=== PATIENT | male | born 1960 | race Caucasian/White ===

== ENCOUNTER → 2017-01-24 | Outpatient (CLI) | payer BC, OTHER ==
[2015-09-26 19:15] VITALS: BP 154/79
[~2017-01-24] MED LIST: ACET325T9 PO; ALPR0.5T6 PO; ASCO500C PO; ASPI-482 PO; ASPI325T11 PO; ATOR10TA PO; CLOP75TA27 PO; DOCU-27 PO; FAMO-63 PO; FAMO40TA57 PO; GABA-586 PO; HYDR-2666 PO; LEVO1CAP3 PO; METF500T4 PO; METO25TA2 PO; OMEG500C PO; POLY17PO29 PO; UBID100C26 PO; UBID10CA5 PO; VITA1TAB49 PO; VITA200C PO; VITA80003 PO; WARF2TAB7 PO
--- NOTE | 2017-01-24 19:17 | CARD ---
APPROVED REPORT EXAM: Two-dimensional and M-mode echocardiogram with Doppler and color Doppler. Other Information Quality : GoodHR: 61bpm Rhythm : NSR INDICATION Cardiac Disease: CAD Ischemic cardiomyopathy RISK FACTORS Hypertension Hyperlipidemia Family History Diabetes 2D DIMENSIONS RVDd2.8 (2.9-3.5cm)Left Atrium(2D)4.2 (1.6-4.0cm) IVSd1.1 (0.7-1.1cm)Aortic Root(2D)3.0 (2.0-3.7cm) LVDd6.3 (3.9-5.9cm)LVOT Diameter2.3 (1.8-2.4cm) PWd1.0 (0.7-1.1cm)LVDs5.1 (2.5-4.0cm) FS (%) 18.3 %SV74.4 ml LVEF(%)45.0 (>50%) Aortic Valve AoV Peak Humberto.140.5cm/sAoV VTI33.0cm AO Peak GR.7.9mmHgLVOT Peak Humberto.83.9cm/s AO Mean GR.4mmHgAVA (VMAX)2.56cm2 Mitral Valve MV E Wkharmxv84.0cm/sMV E Peak Gr.3mmHg MV DECEL [id number] A Reuueocb75.0cm/s MV E Mean Gr.1mmHgE/A Ratio0.8 MV A [id number] Pulmonary Valve PV Peak Gictvdab20.5cm/s Tricuspid Valve TR P. Edtkjszb951zt/sTR Peak Gr.35mmHg Pulmonary Vein S1 Cgqpjlwk26.5cm/sD2 Bvurgodz85.0cm/s PVa asowzpzh94ulpf LEFT VENTRICLE The Left Ventricle is mildly dilated. There is borderline asymmetric left ventricular hypertrophy. Le ft ventricle systolic function is borderline impaired. The Ejection Fraction is 45 %. There is modera te hypokinesis in the basal and mid inferolateral wall. Moderate hypokinesis in the basal lateral wal l. Moderate hypokinesis in the basal and mid segments of the inferior wall. Transmitral Doppler flow pattern is Grade I-abnormal relaxation pattern. No left ventricle thrombus noted on this study. RIGHT VENTRICLE The right ventricle is normal size. There is normal right ventricular wall thickness. The right ventr icular systolic function is normal. ATRIA The left atrium size is normal. The right atrium size is normal. The interatrial septum is intact wit h no evidence for an atrial septal defect or patent foramen ovale as noted on 2-D or Doppler imaging. AORTIC VALVE The aortic valve is mildly sclerotic. The aortic valve is trileaflet. Doppler and Color Flow revealed no significant aortic regurgitation. There is no significant aortic valvular stenosis. MITRAL VALVE Mitral annular calcification is mild. The mitral valve leaflets are thickened. There is no evidence o f mitral valve prolapse. There is no mitral valve stenosis. Doppler and Color Flow revealed trace rosy ral regurgitation. TRICUSPID VALVE Doppler and Color Flow revealed trace tricuspid regurgitation. The pulmonary artery systolic pressure is estimated at 38 mmHg. There is mild pulmonary hypertension. PULMONIC VALVE Doppler and Color Flow revealed no pulmonic valvular regurgitation. GREAT VESSELS The aortic root is normal in size. The ascending aorta is normal in size. The pulmonary artery is nor mal. The IVC was obscured, unable to assess. PERICARDIAL EFFUSION There is no evidence of significant pericardial effusion. Critical Notification Critical Value: No <Conclusion> Left ventricle systolic function is borderline impaired. The Ejection Fraction is 45 %. The Left Ventricle is mildly dilated. Transmitral Doppler flow pattern is Grade I-abnormal relaxation pattern. No left ventricle thrombus noted on this study. The left atrium size is normal. The right atrium size is normal. The aortic valve is mildly sclerotic. The aortic valve is trileaflet. Doppler and Color Flow revealed trace mitral regurgitation. Doppler and Color Flow revealed trace tricuspid regurgitation. The pulmonary artery systolic pressure is estimated at 38 mmHg. There is mild pulmonary hypertension. There is no evidence of significant pericardial effusion.
== END | disposition home or self-care (01) ==
LOC: ECHO 07:30
PROVIDERS: ATTEND Internal Medicine Cardiovascular Disease
DX: I08.1 Rheumatic disorders of both mitral and tricuspid valves (principal); I25.10 Atherosclerotic heart disease of native coronary artery without angina pectoris
CPT/HCPCS: 93306

== ENCOUNTER 2018-02-20 10:08 | Inpatient (IN) | payer BC, OTHER ==
[2018-02-20 10:24] LABS: ADD MAN DIFF? NO
[2018-02-20 10:26] LABS: BASO # 0.1 x10^3/uL (0.0-0.2); BASO % 1 % (0-3); EOS # 0.1 x10^3/uL (0.0-0.7); EOS % 1 % (0-3); HEMATOCRIT 38.5 % (39.0-53.0); HEMOGLOBIN 13.1 g/dL (13.0-17.5); LYMPH % 11 % (24-48); MEAN CORPUSCULAR HEMOGLOBIN 27 pg (25-35); MEAN CORPUSCULAR HGB CONC 34 g/dL (31-37); MEAN CORPUSCULAR VOLUME 80 fL (79-100); MONO # 0.4 x10^3/uL (0.0-1.1); MONO % 5 % (0-9); NEUT # 7.3 x10^3uL (1.8-7.7); NEUT % 83 % (31-73); PLATELET COUNT 261 x10^3/uL (140-400); RED BLOOD COUNT 4.83 x10^6/uL (4.30-5.70); RED CELL DISTRIBUTION WIDTH 16.8 % (11.5-14.5); WHITE BLOOD COUNT 8.8 x10^3/uL (4.0-11.0)
[2018-02-20] MEDS: ASPIRIN CHEWABLE 81 MG TABLET. PO ×2 (10:31)
[2018-02-20 10:40] LABS: INR 3.3 (0.8-1.1); PROTHROMBIN TIME PATIENT 32.8 SEC (11.7-14.0)
[2018-02-20 10:49] LABS: TROPONINI < 0.017 ng/mL (0.000-0.055)
[2018-02-20 10:52] LABS: BILIRUBIN,URINE NEGATIVE (NEG); COLOR,URINE YELLOW; GLUCOSE,URINE NEGATIVE (NEG); NITRITE,URINE NEGATIVE (NEG); PROTEIN,URINE NEGATIVE (NEG-TRACE); UROBILINOGEN,URINE 0.2 mg/dL (0.2 mg/dL)
[2018-02-20 10:53] LABS: ANION GAP 10 (6-14); BLOOD UREA NITROGEN 16 mg/dL (8-26); BUN/CREATININE RATIO 20 (6-20); CALCIUM 9.2 mg/dL (8.5-10.1); CARBON DIOXIDE 26 mmol/L (21-32); CHLORIDE 104 mmol/L (98-107); CREATININE 0.8 mg/dL (0.7-1.3); GFR 98.9; GLUCOSE 135 mg/dL (70-99); POTASSIUM 3.8 mmol/L (3.5-5.1); SODIUM 140 mmol/L (136-145)
[2018-02-20 10:55] LABS: ALBUMIN 3.8 g/dL (3.4-5.0); ALK PHOS 119 U/L (46-116); ALT (SGPT) 29 U/L (16-63); AST (SGOT) 25 U/L (15-37); CKMB INDEX 2.1 % (0-4); CKMB MASS 4.4 ng/mL (0.0-3.6); CREATINE KINASE 206 U/L (39-308); LIPASE 200 U/L (73-393); TOTAL BILIRUBIN 0.3 mg/dL (0.2-1.0); TOTAL PROTEIN 7.5 g/dL (6.4-8.2)
[2018-02-20 10:56] LABS: CLARITY,URINE CLEAR
[2018-02-20 11:01] LABS: BACTERIA,URINE 0 /HPF (0-FEW); RBC,URINE 0 /HPF (0-2); SQUAMOUS EPITHELIAL CELL,UR OCC /LPF; WBC,URINE OCC /HPF (0-4)
[2018-02-20 11:46] LABS: POC GLUCOSE 106 mg/dL (70-99)
[2018-02-20] MEDS: ASPIRIN ENTERIC COATED 325 MG TABLET.DR. PO ×2 (14:13)
[2018-02-20] MEDS: GABAPENTIN 300 MG CAPSULE. PO ×4 (14:14→20:41)
[2018-02-20] MEDS: CLOPIDOGREL BISULFATE 75 MG TABLET PO ×2 (14:14)
[2018-02-20] MEDS: METOPROLOL SUCC 24HR ER 25 MG TAB.ER.24H. PO ×2 (14:14)
[2018-02-20 14:32] LABS: TROPONINI < 0.017 ng/mL (0.000-0.055)
[2018-02-20] MEDS: metFORMIN 500 MG TABLET PO ×2 (16:06)
[2018-02-20 17:46] LABS: TROPONINI < 0.017 ng/mL (0.000-0.055)
[2018-02-20] MEDS: ALPRAZolam 0.5 MG TABLET PO ×2 (19:27)
[2018-02-20 19:36] LABS: POC GLUCOSE 94 mg/dL (70-99)
[2018-02-20 20:13] LABS: POC GLUCOSE 104 mg/dL (70-99)
[2018-02-20] MEDS: FAMOTIDINE 20 MG TABLET. PO ×2 (20:41)
[2018-02-20] MEDS: ATORVASTATIN CALCIUM 10 MG TABLET. PO ×2 (20:41)
[2018-02-21] MEDS: GABAPENTIN 300 MG CAPSULE. PO ×6 (07:36→14:04)
[2018-02-21] MEDS: metFORMIN 500 MG TABLET PO ×6 (07:36→16:00)
[2018-02-21 07:37] LABS: POC GLUCOSE 110 mg/dL (70-99)
[2018-02-21] MEDS: REGADENOSON 0.4 MG/5 ML DISP.SYRIN. IV ×4 (08:00→09:09)
[2018-02-21] MEDS: ASPIRIN ENTERIC COATED 325 MG TABLET.DR. PO ×2 (09:36)
[2018-02-21] MEDS: CLOPIDOGREL BISULFATE 75 MG TABLET PO ×2 (09:36)
[2018-02-21] MEDS: METOPROLOL SUCC 24HR ER 25 MG TAB.ER.24H. PO ×2 (09:36)
[2018-02-21] MEDS: CITALOPRAM 20 MG TABLET. PO ×2 (14:04)
[2018-02-21] MEDS ORDERED: WARFARIN 3 MG TABLET. PO ×2 (16:00)
== END 2018-02-21 17:30 | disposition home or self-care (01) | DRG 897 ==
LOC: ER 10:08 → 6 SOUTH 10:40
DX: F13.239 Sedative, hypnotic or anxiolytic dependence with withdrawal, unspecified (principal); R07.89 Other chest pain (principal); I25.10 Atherosclerotic heart disease of native coronary artery without angina pectoris; F41.9 Anxiety disorder, unspecified; K21.9 Gastro-esophageal reflux disease without esophagitis; E78.00 Pure hypercholesterolemia, unspecified; I10 Essential (primary) hypertension; I25.2 Old myocardial infarction; E78.5 Hyperlipidemia, unspecified; E11.51 Type 2 diabetes mellitus with diabetic peripheral angiopathy without gangrene; M54.5 Low back pain; Z86.718 Personal history of other venous thrombosis and embolism; Z95.1 Presence of aortocoronary bypass graft; M54.2 Cervicalgia; R68.84 Jaw pain; Z90.89 Acquired absence of other organs; Z95.5 Presence of coronary angioplasty implant and graft; Z79.84 Long term (current) use of oral hypoglycemic drugs; Z86.711 Personal history of pulmonary embolism; Z79.899 Other long term (current) drug therapy; Z98.49 Cataract extraction status, unspecified eye
CPT/HCPCS: 36415; 71045; 78452; 80053; 81001; 82553; 82962; 83690; 84484; 85025; 85610; 93005; 93017; 96374; 96375; 96376; 99285; 99285-25; A9500; G0378; G0379; J2060; J2785

== ENCOUNTER → 2019-09-12 | Outpatient (CLI) | payer BC ==
[2018-06-19 12:46] VITALS: BP 131/65
[~2019-09-12] MED LIST changes: +ALPR0.25 PO; -CLOP75TA27 PO; +CLOP75TA57 PO; +DOCU-109 PO; -DOCU-27 PO; +ESCITALOPRAM OXA5 MG PO; +FERR325T14 PO; -GABA-586 PO; +GABA300C18 PO; -HYDR-2666 PO; +HYDR-2761 PO; +IOHEXOL 240 MG/ML 50ML VIAL. PO ONE; +IOHEXOL 300 MG/ML 100ML VIAL. IV ONE; +IOHEXOL 300 MG/ML 50 ML VIAL. PO ONE; +METF500T16 PO; -METF500T4 PO; +METO-239 PO; +OMEG1CAP43 PO; +OMEP40CA45 PO; +WARF1TAB74 PO; -WARF2TAB7 PO; +WARF2TAB96 PO
--- NOTE | 2019-09-12 15:01 | KCIC ---
CT ABD PELV W/ORAL IV CONTRAST Indication: Weight loss, gross hematuria, night sweats Technique: Postcontrast CT imaging was performed of the abdomen pelvis, multiplanar reconstruction images submitted. Oral contrast was also given. One or more of the following individualized dose reduction techniques were utilized for this examination: 1. Automated exposure control 2. Adjustment of the mA and/or kV according to patient size 3. Use of iterative reconstruction technique. Comparison: January 01, 2013 Findings: There has been a median sternotomy. There is no pleural fluid at the visualized lung bases. No focal abnormality is identified of the liver, spleen, adrenal glands. There is cholelithiasis. There is a small hypodense lesion of the body of pancreas about 0.5 cm coronal image 19 series 4 and axial image 24 series 2, difficult to confidently visualize on previous noncontrast exam. Both kidneys enhance, no hydronephrosis. There is a 0.4 cm calculus near the left ureteropelvic junction. Bowel is not significantly dilated. There is no free fluid or free air. There is diverticulosis of the sigmoid colon. There is moderate wall thickening of the mid sigmoid colon, adjacent mild strandy change posteriorly. Normal caliber appendix is seen along the inferior margin of the cecum. There is atherosclerotic calcification of the abdominal aorta and iliac arteries. Urinary bladder is somewhat distended. Prostate gland slightly indents the base of the urinary bladder. There is advanced degenerative disc disease L3-4 to L5-S1. There is grade 1 anterior spondylolisthesis at L4-5, multilevel lumbar facet degenerative change. There is mild to moderate lumbar levoscoliosis. There is right L4 spondylolysis. There is neural foramina compromise of the lumbar spine greatest on the right at L3-4. There is sclerosis about the bilateral sacroiliac joints, right greater than left. IMPRESSION: 1. There is a small 0.4 cm calculus near the left ureteropelvic junction, no significant hydronephrosis. Urinary bladder is somewhat distended, cannot accurately evaluate for intraluminal or mural abnormality of the urinary bladder on this exam. 2. There is sigmoid colonic diverticulosis. There is degree of mid sigmoid colonic wall thickening, diverticulitis not excluded as there is mild strandy change posteriorly. Colon screening is advised if this has not been performed. 3. There is a small, nonspecific, hypodense lesion of the body of pancreas. This is otherwise difficult to further characterize given small size, also probably difficult to accurately characterize on MRI. Follow-up to assess stability such as in 4-6 months may be beneficial. 4. There is cholelithiasis. 5. There is multilevel lumbar degenerative disc. There is grade 1 anterior spondylolisthesis at L4-5, right L4 spondylolysis. There is sclerosis about the bilateral sacroiliac joints bilaterally as may be seen with sequela of sacroiliitis. Electronically signed by: Alexey Tijerina MD (09/12/2019 2:58 PM) [id number]
== END | disposition home or self-care (01) ==
LOC: KCIC CT 11:27
PROVIDERS: ATTEND Physician Assistant Medical
DX: K80.20 Calculus of gallbladder without cholecystitis without obstruction (principal); N20.1 Calculus of ureter; K57.30 Diverticulosis of large intestine without perforation or abscess without bleeding; K86.89 Other specified diseases of pancreas; I70.0 Atherosclerosis of aorta; M51.37 Other intervertebral disc degeneration, lumbosacral region; M43.16 Spondylolisthesis, lumbar region
CPT/HCPCS: 74177; 82565; Q9966; Q9967

== ENCOUNTER → 2019-09-18 | Outpatient (CLI) | payer BC ==
[2018-06-19 12:46] VITALS: BP 131/65
[~2019-09-18] MED LIST changes: +GADOTERATE 7.5 MMOL/15ML VIAL. IVP ONE; -IOHEXOL 240 MG/ML 50ML VIAL. PO ONE; -IOHEXOL 300 MG/ML 100ML VIAL. IV ONE; -IOHEXOL 300 MG/ML 50 ML VIAL. PO ONE
--- NOTE | 2019-09-19 09:07 | KCIC ---
Abdominal MRI with and without IV contrast INDICATION: Pancreatic mass. COMPARISON: Abdomen and pelvis CT with IV contrast of September 12, 2019. TECHNIQUE: Multiplanar multisequence MR imaging of the abdomen was performed including T1, T2, TrueFISP, diffusion-weighted imaging and dynamic pre and postcontrast imaging using 14 mL of Dotarem IV. FINDINGS: The small lesion in the pancreatic body identified on CT 6 days ago is an oval 6 mm lesion that is T2 bright, T1 dark, and shows no enhancement or restricted diffusion. The rest of the pancreas is unremarkable. This lesion lies close to the normal caliber main pancreatic duct. There is no evidence of peripancreatic adenopathy. The major abdominal vessels in the included field of view are normal in caliber and enhance appropriately. No liver lesions. There are incidental findings of prior median sternotomy, cholelithiasis, and mild splenomegaly with a splenic index of 900 (normal less than 480). The spleen measures 12.8 cm x 13.8 cm x 5.1 cm (cc by AP by mediolateral). Mild lumbar spinal degenerative spondylosis also noted. IMPRESSION: A 6 mm lesion in the pancreatic body shows MR imaging characteristics most consistent with a simple cyst. This could represent a side branch IPMN. The ACR white paper on the management of incidental pancreatic cysts recommends yearly surveillance abdominal imaging (preferably with MRI) for 5 years to confirm stability, and provided stable in that interval, every 2 years for an additional 2 years to document minimum of 9 years of stability. Electronically signed by: Albina Jones MD (09/19/2019 9:04 AM) [facility]
== END | disposition home or self-care (01) ==
LOC: KCIC MRI 08:30
PROVIDERS: ATTEND Family Medicine
DX: K86.89 Other specified diseases of pancreas (principal); K86.2 Cyst of pancreas; K80.20 Calculus of gallbladder without cholecystitis without obstruction; M47.816 Spondylosis without myelopathy or radiculopathy, lumbar region; R16.1 Splenomegaly, not elsewhere classified
CPT/HCPCS: 74183; A9575

== ENCOUNTER → 2020-09-22 | Outpatient (CLI) | payer BC ==
[2018-06-19 12:46] VITALS: BP 131/65
[~2020-09-22] MED LIST changes: +WARF1TAB2 PO; -WARF1TAB74 PO
--- NOTE | 2020-09-22 17:31 | KCIC ---
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 After the intravenous administration of 14 cc of clear scan, enhanced fat saturated dynamic a xial images of the abdomen were obtained. FINDINGS: Comparison study is dated 09/18/2019. Increased signal intensity of the liver parenchyma is seen consistent with fatty infiltration. No foc al abnormality of the liver is noted. The adrenal glands and kidneys are within normal limits. The sp felix is mildly enlarged measuring 15 cm in length. Small rounded areas of diminished contrast enhance ment are seen scattered throughout the spleen which gradually fill in with contrast on the delayed im ages. These likely represent hemangiomas. They are unchanged. An oval-shaped area of increased signal intensity is seen on the T2-weighted images involving the bod y the pancreas which measures 6 mm in size. It is unchanged from the previous examination. It does no t enhance with contrast. It appears to communicate with the pancreatic duct consistent with the patie nt's history of a side branch IPMN. The abdominal aorta tapers normally. Small gallstones are seen within the dependent portions of the g allbladder. No free fluid is seen. IMPRESSION: Stable MRI appearance of the 6 mm pancreatic lesion as discussed above. Electronically signed by: Jorge Benson MD (09/22/2020 5:29 PM) [id number]
== END ==
LOC: KCIC MRI 13:39
PROVIDERS: ATTEND Family Medicine
DX: K80.20 Calculus of gallbladder without cholecystitis without obstruction (principal); R16.1 Splenomegaly, not elsewhere classified; K86.2 Cyst of pancreas
CPT/HCPCS: 74183; 82565; A9575

== ENCOUNTER → 2020-10-22 | Outpatient (CLI) | payer BC ==
[2018-06-19 12:46] VITALS: BP 131/65
[~2020-10-22] MED LIST changes: -GADOTERATE 7.5 MMOL/15ML VIAL. IVP ONE
== END ==
LOC: LAB 08:03
PROVIDERS: ATTEND Internal Medicine Gastroenterology
DX: Z01.812 Encounter for preprocedural laboratory examination (principal); Z20.822 Contact with and (suspected) exposure to COVID-19; D64.9 Anemia, unspecified
CPT/HCPCS: U0003

== ENCOUNTER → 2020-10-24 | Day surgery (SDC) | payer BC ==
[~2020-10-24] MED LIST changes: +IV RINGERS,LACTATED 1000ML 1,000 ML IV SCH; +LIDOCAINE 2% PF 5 ML VIAL. ONE; +PROPOFOL 10 MG/ML (20ML) VIAL. IV ONE
--- NOTE | 2020-10-24 09:00 | CONS ---
DATE OF CONSULTATION: 10/24/2020 REFERRING PHYSICIAN: Khoi Ho. REASON FOR CONSULTATION: Iron deficiency anemia. HISTORY OF PRESENT ILLNESS: A 60-year-old male with past medical history significant for diabetes, GERD, organic heart disease, status post GA, history of colonic polyps, hyperlipidemia, hypertension, seen with iron deficiency anemia. He has daily bowel movements without diarrhea or constipation. Weight and appetite are stable. Omeprazole he is taking controls his reflux well. Last colonoscopy was in 2018, did reveal diverticulosis and recent MRI of a side-branch IPMN, pancreatic lesion is stable in size and with the anemia, he is here today for further evaluation and care. PAST MEDICAL HISTORY: Anxiety, diabetes, GERD, GA, hyperlipidemia, hypertension, history of colonic polyps, diverticulosis. MEDICATIONS: Include Xanax, vitamin C, atorvastatin, Metanx capsules, metformin, metoprolol, omeprazole, Coenzyme Q, multivitamins. FAMILY AND SOCIAL HISTORY: Significant for diabetes in multiple family members. SOCIAL HISTORY: He is a former smoker and drinker. PAST SURGICAL HISTORY: Back surgery and CABG. REVIEW OF SYSTEMS: Per records. PHYSICAL EXAMINATION: GENERAL: Reveals a well-nourished, well-developed male who is alert, cooperative, in no acute distress. VITAL SIGNS: Temperature 97.8, pulse 106, respirations 20, pulse oximetry 95%. LUNGS: Clear. CARDIOVASCULAR: Reveals an S1, S2 without S3, S4 or appreciable murmur. ABDOMEN: Reveals a soft abdomen, normal bowel sounds, without appreciable hepatosplenomegaly. IMPRESSION AND RECOMMENDATIONS: Iron deficiency anemia, etiology to be determined. Differential includes colonic gastric polyps, cancer, arteriovenous malformations, diabetes, celiac disease, Honeycutt's. I, therefore, recommend endoscopy, EGD and colonoscopy. Risks and benefits have been previously discussed with the patient including risk of hemorrhage and perforation and is willing to proceed at this time. ALBERTO VELASQUEZ MD DR: ELA/rod JOB#: [id number] / [id number]
[2020-10-24 09:24] VITALS: BP 114/62
--- NOTE | 2020-10-28 14:09 | PATHOLOGY ---
[facility] Accession Number: [id number] . 01 Material submitted: . sigmoid colon - COLITIS SIGMOID COLON . 01 Clinical history: . IRON DEFICIENCY ANEMIA EGD COLONOSCOPY . 02 Diagnosis: Colon biopsies, sigmoid colon: - Mild inactive chronic colitis. (JPM:[facility] 10/28/2020) [facility] 10/28/2020 0918 Local . 02 Comment: Sections of the sigmoid colon biopsy reveal segments of colonic mucosa showing mild nonspecific chronic inflammation. There is no evidence of a chronic destructive colitis, ie. there is no crypt architectural distortion, acute cryptitis or crypt abscesses. The findings may represent a mild diverticular associated colitis. There is no evidence of an acute colitis or ischemic colitis. (JPM:[facility] 10/28/2020) . 02 Electronically signed: . Benja Smyth MD, Pathologist NPI- [id number] . 01 Gross description: . Received in formalin labeled "Lora, Scotty, biopsy colitis sigmoid colon" are multiple allen-brown soft tissue fragments measuring in aggregate 1.6 x 0.4 x 0.2 cm. The specimen is submitted entirely in A1. ([facility]; 10/26/2020) GZA/GZA 10/26/2020 1005 Local . 02 Pathologist provided ICD-10: K52.9 . 02 CPT . 905427 Specimen Comment: Report sent to / Performed at: 01 [facility] [address], [place] [id number] MD Kenan Chavez MD Phone: [phone] Performed at: 02 [facility] [address] [place], [place] [id number] MD Benja Smyth MD Phone: [phone]
== END | disposition home or self-care (01) ==
LOC: ENDOS 06:57
PROVIDERS: ATTEND Internal Medicine Gastroenterology
DX: D50.9 Iron deficiency anemia, unspecified (principal); K21.9 Gastro-esophageal reflux disease without esophagitis; K51.50 Left sided colitis without complications; K64.0 First degree hemorrhoids; K57.30 Diverticulosis of large intestine without perforation or abscess without bleeding; K29.50 Unspecified chronic gastritis without bleeding; R58 Hemorrhage, not elsewhere classified; K63.89 Other specified diseases of intestine; K52.9 Noninfective gastroenteritis and colitis, unspecified; I25.10 Atherosclerotic heart disease of native coronary artery without angina pectoris; I10 Essential (primary) hypertension; E78.00 Pure hypercholesterolemia, unspecified; E11.9 Type 2 diabetes mellitus without complications; M19.90 Unspecified osteoarthritis, unspecified site; F41.9 Anxiety disorder, unspecified; Z87.891 Personal history of nicotine dependence; Z79.84 Long term (current) use of oral hypoglycemic drugs; Z79.899 Other long term (current) drug therapy; Z72.89 Other problems related to lifestyle
CPT/HCPCS: 43235; 45380; J2704